=== PATIENT | female | born 1970 | race Caucasian/White ===

== ENCOUNTER 2016-07-30 13:12 | Emergency (ER) | payer OTHER ==
[~2016-07-30] VITALS: Ht 160 cm; Wt 107.7 kg
[2016-07-30 13:20] VITALS: BP 142/87; PULSE 85; TEMP 98.7
[2016-07-30] MEDS ORDERED: ZESTRIL 20MG TA20 MG PO (13:23)
[2016-07-30] MEDS ORDERED: TOPROL XL100 MG PO (13:24)
[2016-07-30] MEDS ORDERED: LITHIUM 30300 MG/CAP PO (13:24)
[2016-07-30] MEDS ORDERED: ALDACTAZIDE 251 TAB PO (13:24)
[2016-07-30] MEDS ORDERED: LEVOXYL0.1 MG PO (13:39)
== END 2016-07-30 15:00 | disposition home or self-care (01) ==
LOC: COL.ER 13:12
DX: S90.32XA Contusion of left foot, initial encounter (principal); F31.9 Bipolar disorder, unspecified; I10 Essential (primary) hypertension; J45.909 Unspecified asthma, uncomplicated; E03.9 Hypothyroidism, unspecified; F17.210 Nicotine dependence, cigarettes, uncomplicated; W20.8XXA Other cause of strike by thrown, projected or falling object, initial encounter; Y92.009 Unspecified place in unspecified non-institutional (private) residence as the place of occurrence of the external cause